=== PATIENT | male | born 2000 | race African-American/Black ===

== ENCOUNTER 2022-06-08 11:08 | Emergency (ER) | payer OTHER ==
[2022-06-08] MEDS ORDERED: Ketorolac Tromethamine 30 MG/ML VIAL ONE (11:33)
[2022-06-08] MEDS ORDERED: cefTRIAXone\\ROCEPHIN 500 MG VIAL ONE (13:11)
[2022-06-08] MEDS ORDERED: Lidocaine 1% MPF 2 ML VIAL ONE (13:12)
[2022-06-08 13:27] LABS: Bacteria/HPF None Seen HPF (None Seen); Bilirubin Negative (Negative); Blood, Urine Negative (Negative); Clarity Clear (Clear); Glucose, Urine (Dipstick) Normal (Negative); Ketone, Urine 10 mg/dL (Negative); Leukocyte Negative Leu/uL (Negative); Nitrite Negative (Negative); Protein, Urine (Dipstick) 70 mg/dL (Neg-Trace); RBC/HPF 0-3 HPF (0-3); Specific Gravity, Urine 1.037 (1.002-1.036); Squamous Epithelial 0-3 HPF (0-3); Urobilinogen Normal mg/dL (Less than 2); WBC/HPF 0-3 HPF (0-3)
== END 2022-06-08 14:54 | disposition home or self-care (01) ==
LOC: ERS 11:08
DX: N50.811 Right testicular pain (principal)
CPT/HCPCS: 76870; 81003; 81015; 93976; 96372; J0696; J1885